=== PATIENT | male | born 1970 | race Caucasian/White ===

== ENCOUNTER 2017-09-11 21:10 | Emergency (ER) | payer BC ==
--- NOTE | 2017-09-11 21:20 | EDPHY ---
H & P Stated Complaint: CI [facility] hold Source: Police, RN/MD Exam Limitations: Intoxication Time Seen by Provider: 09/11/17 21:19 HPI/ROS: HPI: This is a 47-year-old male who presents with Chief Complaint: Alcohol intoxication, [facility] hold Location: body Quality: Alcohol intoxication Duration: Today Signs and Symptoms: no fever, no nausea, no vomiting, no hematemesis, no blood in stool, no abdominal bloating, no diarrhea, no back pain, no urinary symptoms , no testicular/groin pain, no indigestion, no chest pain, no shortness of breath Timing: Unknown Severity: Moderate Context: Patient arrives via EMS, after being at the [facility] [place] , he was found to be severely intoxicated with decreased responsiveness. Patient is sleeping soundly able to answer questions. Maintaining airway vital signs stable upon arrival. Modifying Factors: Comment: ROS: Unable to complete secondary to intoxication MEDICAL/SURGICAL/SOCIAL HISTORY: Medical history: Unknown Surgical history: Unknown Social history: Unknown CONSTITUTIONAL: Intoxicated, lethargic, middle aged white male, smells heavily of alcohol, audible snoring, awake and alert, no obvious distress HEENT: Atraumatic and normocephalic, PERRL, EOMI. Tympanic membranes clear. Oropharynx clear, no exudate and moist pink mucosa. Airway patent. No lymphadenopathy. No meningismus. Cardiovascular: Normal S1/S2, regular rate, regular rhythm, without murmur rub or gallop. PULMONARY/CHEST: Symmetrical and nontender. Clear to auscultation bilaterally. Good air movement. No accessory muscle usage. ABDOMEN: Soft, nondistended, nontender, no rebound, no guarding, no peritoneal signs, no masses or organomegaly. No CVAT. EXTREMITIES: 2/2 pulses, strength 5/5, no deformities, no clubbing, no cyanosis or edema. NEUROLOGICAL: no focal neuro deficits. GCS 8. SKIN: Warm and dry, no erythema. no rash. Good capillary refill. (Tamy Escobar) Constitutional: Initial Vital Signs Temperature (C) 36.6 C 09/11/17 21:09 Heart Rate 98 09/11/17 21:09 Respiratory Rate 16 09/11/17 21:09 Blood Pressure 126/92 H 09/11/17 21:09 O2 Sat (%) 93 09/11/17 21:09 O2 Delivery Mode Room Air Allergies/Adverse Reactions: No Known Allergies Allergy (Unverified 09/11/17 21:12) Medical Decision Making ED Course/Re-evaluation: 2124: Will observe until more clinically sober. Currently maintaining airway and vital signs stable. Plan to discharge the [facility] once able to ambulate. Does not meet M1 hold or Detainer criteria. 0005: End of shift. Signed over to Dr. Larsen pending re-evaluation once more sober. Suspect final disposition= discharge to the [facility]. This patient was seen under the supervision of my secondary supervising physician. I evaluated care for this patient independently. (Tamy Escobar) PHYSICIAN DOCUMENTATION: The patient was evaluated and managed by the Physician Data Conversion Analyst. My co- signature indicates that I have reviewed this chart and I agree with the findings and plan of care as documented. I am the secondary supervising physician. The patient was monitored for several hours and allowed to sleep. He eventually awoke and was much more sober then upon arrival. He was able to walk with a steady gait. We terminated his [facility] hold and he will take a taxi home. (Susie Larsen) Differential Diagnosis: Altered mental status including but not limited to hypoglycemia, infectious process, electrolyte abnormality, head injury and intoxicants. (Tamy Escobar) Departure - Departure Disposition: Home, Routine, Self-Care Clinical Impression: Alcoholic intoxication without complication Condition: Good Instructions: At-Risk Alcohol Use (ED) Referrals: [facility] 24 Hours [Outside] - As per Instructions
[2017-09-12 02:04] VITALS: BP 117/75
== END 2017-09-12 03:05 | disposition home or self-care (01) ==
DX: F10.129 Alcohol abuse with intoxication, unspecified (principal)

== ENCOUNTER 2017-09-12 13:51 | Emergency (ER) | payer BC ==
--- NOTE | 2017-09-12 13:59 | EDPHY ---
H & P Source: Patient, Police, Old records - Social History Smoking Status: Unknown if ever smoked Time Seen by Provider: 09/12/17 13:58 HPI/ROS: HPI: This is a 47-year-old male who presents with Chief Complaint: M1 hold, suicidal ideation Location: psych Quality: M1 hold suicidal ideation Duration: Today Signs and Symptoms: no auditory and visual command hallucinations, + suicidal ideation with a plan, no homicidal ideation, not paranoid Timing: Unknown Severity: Moderate to severe Context: Patient is generally healthy, presents via police on M1 hold after patient's called the police with concerns of patient wanting to commit suicide and end his life today. She is currently out of town but is traveling home will arrived this evening sometime. Patient admits to drinking vodka the entire day. Denies any prior psychiatric diagnoses. Patient reports that he does not want to continue to live, wants to drink enough alcohol to fall asleep and never wake up. Denies any previous suicide attempts. After further questioning, patient admits that he drinks alcohol frequently and abuses often. He denies ever being to alcohol rehab. Denies illegal drug use. Denies ever having alcohol withdrawal seizure. Modifying Factors: None Comment: ROS: see HPI Constitutional: No fever, no chills, no weight loss Eyes: No blurred vision Respiratory: No shortness of breath, no cough Cardiovascular: No chest pain Gastrointestinal: No nausea, no vomiting, no diarrhea Genitourinary: No dysuria Extremities: No myalgias Neurologic: No weakness, no numbness Skin: No rashes Hematologic: No bruising, no bleeding MEDICAL/SURGICAL/SOCIAL HISTORY: Medical history: Generally healthy. Does not take any regular medications. Surgical history: Denies Social history: Employed. CONSTITUTIONAL: Untidy, intoxicated, smells like alcohol, middle aged adult white male, cooperative, awake and alert, no obvious distress HEENT: Atraumatic and normocephalic, PERRL, EOMI. Tympanic membranes clear. Oropharynx clear, no exudate and moist pink mucosa. Airway patent. No lymphadenopathy. No meningismus. Cardiovascular: Normal S1/S2, tachy, regular rhythm, without murmur rub or gallop. PULMONARY/CHEST: Symmetrical and nontender. Clear to auscultation bilaterally. Good air movement. No accessory muscle usage. ABDOMEN: Soft, nondistended, nontender, no rebound, no guarding, no peritoneal signs, no masses or organomegaly. No CVAT. EXTREMITIES: 2/2 pulses, strength 5/5, no deformities, no clubbing, no cyanosis or edema. NEUROLOGICAL: no focal neuro deficits. GCS 15. Speech somewhat slurred. SKIN: Warm and dry, no erythema. no rash. Good capillary refill. PSYCH: Fair eye contact, no flight of ideas, organized thought process, poor insight and judgment, no auditory and visual command hallucinations, + suicidal ideation with a plan, no homicidal ideation, not paranoid (Tamy Escobar) Constitutional: Initial Vital Signs Temperature (C) 36.8 C 09/12/17 13:51 Heart Rate 105 H 09/12/17 13:51 Respiratory Rate 18 09/12/17 13:51 Blood Pressure 137/88 H 09/12/17 13:51 O2 Sat (%) 96 09/12/17 13:51 O2 Delivery Mode Room Air O2 (L/minute) 0 Allergies/Adverse Reactions: No Known Allergies Allergy (Unverified 09/11/17 21:12) Home Medications: Medication Instructions Recorded NK [No Known Home Meds] 09/12/17 Medical Decision Making ED Course/Re-evaluation: 1415: Agree with M1 hold placed by police given alcohol intoxication and suicidal ideations. Labs and UDS ordered. Patient currently calm and cooperative. 1745: End of shift. Labs reviewed and grossly unremarkable. Signed over to Dr. Barraza pending urine sample, medical clearance, mental health evaluation, final disposition. Ethanol 393; once patient more sober; recommend re-evaluation. This patient was seen under the supervision of my primary supervising physician. I evaluated care for this patient independently. Discussed this patient with Dr. Barraza who did not see the patient. (Tamy Escobar) 3:00 p.m.-I assumed care of this patient. He is on an M1 hold for suicidal ideation. He is acutely intoxicated with alcohol. No prior psychiatric history. Once sober, he will undergo a mental health evaluation. 7pm-resting comfortably with eyes closed, easily awakened. Still intoxicated. 9pm-signed over to Dr. Lacy at shift change. Awaiting sobriety. (Aleida Barraza) 2223: No acute events today. Patient intoxicated. Still waiting sobriety and then needs mental health evaluation. Signed over at 2230: Dr. Larsen ([facility]) 6:51 a.m.- Patient was stable throughout my shift and eventually sobered. He is currently undergoing evaluation by the mental health worker. The case will be signed out to the oncoming provider Dr. Oliveira pending his disposition. (Susie Larsen ) 700: The patient is signed out to me at change of shift by Dr. Larsen. Patient is awaiting evaluation. (Yudy Oliveira) Differential Diagnosis: Differential diagnosis includes but is not limited to alcohol intoxication, functional in situational depression, bipolar disorder, delusional disorder, delirium. (Tamy Escobar) - Data Points Laboratory Results: Laboratory Results 09/12/17 14:35 09/12/17 14:35 Departure - Departure Disposition: Home, Routine, Self-Care Clinical Impression: Suicidal ideations Alcohol intoxication Qualifiers: Complication of substance-induced condition: uncomplicated Qualified Code(s): F10.920 - Alcohol use, unspecified with intoxication, uncomplicated Condition: Good Instructions: Abuse of Alcohol (ED)
[2017-09-12 14:46] LABS: PLATELET COUNT 244 10^3/uL (150-400)
[2017-09-13 08:53] VITALS: BP 132/78
== END 2017-09-13 09:03 | disposition home or self-care (01) ==
LOC: EDUNIT#
DX: R45.851 Suicidal ideations (principal); F10.920 Alcohol use, unspecified with intoxication, uncomplicated
CPT/HCPCS: 80305; G0480